=== PATIENT | female | born 1940 | race Caucasian/White ===

== ENCOUNTER → 2017-10-21 | Outpatient (CLI) | payer MEDICARE, OTHER ==
[~2017-10-21] MED LIST: TRAM50 PO
== END | disposition home or self-care (01) ==
LOC: LAB EV 15:13 → LAB SHORT 15:13
DX: N39.0 Urinary tract infection, site not specified (principal)
CPT/HCPCS: 87077; 87086; 87186

== ENCOUNTER → 2018-07-23 | Outpatient (CLI) | payer MEDICARE, OTHER | END | disposition home or self-care (01) | LOC: PLD 08:39 → LAB SHORT 08:39 | DX: D48.5 Neoplasm of uncertain behavior of skin (principal) | CPT/HCPCS: 88305 ==

== ENCOUNTER → 2019-05-27 | Outpatient (CLI) | payer MEDICARE, OTHER ==
[2019-05-29 13:11] LABS: M-SPIKE, % Not Observed % (Not Observed); PROTEIN,TOTAL,URINE 11.8 mg/dL (Not Estab.)
== END | disposition home or self-care (01) ==
LOC: LAB SHORT 07:41 → LAB SRC 07:41 → LAB FUT 05-24 09:35 → EDSTATUS 05-24 09:35
PROVIDERS: Internal Medicine
DX: D89.2 Hypergammaglobulinemia, unspecified (principal)
CPT/HCPCS: 84156; 84166

== ENCOUNTER → 2019-12-07 | Outpatient (CLI) | payer MEDICARE, OTHER ==
[~2019-12-07] MED LIST changes: +ACET325 PO; +ASPI325 PO; +ATOR20 PO; +CLOP75 PO; +GABA300 PO; +LANSOPRAZOLE30 MG PO; +LOSARTAN POTASS25 M2 PO; +METO25 PO; +NEURONTIN300 MG PO; +PANTOPRAZOLE SO40 M2 PO
== END | disposition home or self-care (01) ==
LOC: LAB SHORT 15:18 → PLD 15:18
DX: D48.5 Neoplasm of uncertain behavior of skin (principal)
CPT/HCPCS: 88305

== ENCOUNTER 2019-12-13 09:41 | Inpatient (IN) | payer MEDICARE, OTHER ==
[~2019-12-13] VITALS: Ht 167.6 cm; Wt 56.0 kg
[~2019-12-13 09:41] MED LIST changes: -ACET325 PO; -ASPI325 PO; -ATOR20 PO; -CLOP75 PO; -GABA300 PO; -LANSOPRAZOLE30 MG PO; -LOSARTAN POTASS25 M2 PO; -METO25 PO; -NEURONTIN300 MG PO; -PANTOPRAZOLE SO40 M2 PO
[2019-12-13] MEDS ORDERED: LOSARTAN POTASS25 M2 PO (09:58)
[2019-12-13] MEDS ORDERED: LANSOPRAZOLE30 MG PO (09:58)
[2019-12-13 10:17] LABS: BASOPHILS ABSOLUTE AUTO 0.03 K/mm3 (0.00-0.23); BASOPHILS PERCENT AUTO 0 % (0-2); EOSINOPHILS ABSOLUTE AUTO 0.18 K/mm3 (0.00-0.68); EOSINOPHILS PERCENT AUTO 2 % (0-6); Hematocrit 40.4 % (33.0-51.0); Hemoglobin 12.8 g/dL (11.5-16.0); IMMATURE GRAN ABSOLUTE AUTO 0.04 K/mm3 (0.00-0.10); IMMATURE GRAN PERCENT AUTO 0 % (0-1); LYMPHOCYTES ABSOLUTE AUTO 2.52 K/mm3 (0.84-5.20); LYMPHOCYTES PERCENT AUTO 28 % (21-46); MONOCYTES ABSOLUTE AUTO 0.75 K/mm3 (0.16-1.47); MONOCYTES PERCENT AUTO 8 % (4-13); Mean Corpuscular HGB 29.8 pg (26.0-34.0); Mean Corpuscular HGB Conc 31.7 g/dL (31.5-36.5); Mean Corpuscular Volume 94 fL (80-100); Mean Platelet Volume 10.1 fL (9.1-12.4); NEUTROPHILS ABSOLUTE AUTO 5.37 K/mm3 (1.96-9.15); NEUTROPHILS PERCENT AUTO 61 % (41-73); Platelet Count 260 K/mm3 (150-400); RDW Coefficient Variation 13.8 % (11.7-14.2); White Blood Cell Count 8.89 K/mm3 (4.00-11.30)
[2019-12-13 10:41] LABS: Alanine Aminotransfer (ALT/SGP 21 U/L (12-78); Albumin/Globulin Ratio 0.6 (0.8-1.8); Alk Phos 105 U/L (50-136); Anion Gap 5 mmol/L (6-16); Aspartate Aminotrans (AST/SGOT 99 U/L (12-37); Bilirubin, Total 0.4 mg/dL (0.1-1.0); Blood Urea Nitrogen 11 mg/dL (8-24); Bun/Creatinine Ratio 17.5 (12.0-20.0); CO2, Blood 26 mmol/L (21-32); Calcium, Blood 8.7 mg/dL (8.5-10.1); Chloride, Blood 107 mmol/L (98-108); Creatinine, Blood 0.63 mg/dL (0.40-1.00); Globulin, Blood 5.1 g/dL (2.2-4.0); Glomerular Filtration Rate >60 (60-); Glucose, Blood 120 mg/dL (70-99); Potassium, Blood 4.2 mmol/L (3.5-5.5); Sodium, Blood 138 mmol/L (136-145); Total Protein, Blood 8.1 g/dL (6.4-8.2)
[2019-12-13] MEDS ORDERED: NEURONTIN300 MG PO (11:45)
[2019-12-13] MEDS ORDERED: PANTOPRAZOLE SO40 M2 PO (11:45)
[2019-12-13 11:52] LABS: International Normalized Ratio 0.96; Prothrombin Time Results 10.3 Sec (9.7-11.5)
--- NOTE | 2019-12-13 13:18 | NUR ---
ECHOCARDIOGRAM COMPLETED
--- NOTE | 2019-12-13 13:59 | NUR ---
PT ARRIVES IN ICU AT 1320, SHE IS ALERT AND ORIENTED X 4, ALTHOUGH APPEARS DROWSY. SHE DENIES CP, SOB, AND NAUSEA. AFTER GETTING HER SET UP TO OUR MONITORS I STARTED THE HEPRARIN GTTP. HER BP IS SOFT, BUT THE LAST ONE WAS ADEQUATE AT 107/67. SHE TOOK COZAAR THIS MORNING, SO I WILL BE HOLDING THAT DOSE & WHILE PT IS PAIN FREE WITH THE SOFT PRESSURE I WILL BE HOLDING THE NITROGLYCERIN GTTP. WILL CONTINUE TO MONITOR. PT IS SHAKY SO THE CARDIAC MONITORING TRACING IS NOT VERY CLEAN, BUT SHE APPEARS TO BE IN SINUS RHYTHM WITH A RATE IN THE 70s. NO ST ELEVATIONS ABNORMALITIES SEEN. DAUGHTER AT BEDSIDE. PT FALLING ASLEEP. BED LOW AND LOCKED. ADMIT HISTORY QUESTIONS DELAYED FOR NOW, UNTIL PT MORE AWAKE. CALL LIGHT WITHIN REACH.
--- NOTE | 2019-12-13 14:23 | NUR ---
C/B to provide assurance of care, spiritual direction and prayer for Maria G. She had been recently medicated and was calm. I listened to her concerns/fears. She responded well to gentle certified alcohol and drug counselor and prayer. I will remain available.
--- NOTE | 2019-12-13 14:38 | NUR ---
PT TO ACCOUNTS RECEIVABLE COORDINATOR AT 1425, STABLE VITALS, SINUS RHYTHM, AND DENYING CHEST PAIN.
--- NOTE | 2019-12-13 14:44 | NUR ---
WRONG WEIGHT WHEN PT ARRIVED IN ICU WE WEIGHED THE PT AND IT WAS 56 KG. FROM 1331 TO 1425 PT WAS ON HEPARIN AT 13 UNITS/KG/HR. THE BED WEIGHED HER IN AT 56 KG. IT IS NOW REALIZED THAT THE PT IS NOT 56 KG, SO WHEN PT GETS BACK TO ICU - WE WILL RE-WEIGH THE PT AND UPDATE PHARMACY.
--- NOTE | 2019-12-13 15:39 | NUR ---
ASSUMED CARE: PT TRANSFERRED FROM [facility] AND ICU. REPORT FROM JAMAL AND TRINIDAD RNS. DR TIERNEY CALLED AND SAID CORONARIES CLEAR ON ANGIO AND ORDERED CTA CHEST TO R/O PE. PT'S TR BAND WITH NO SIGNS OF BRUISING OR BLEEDING AT THIS TIME. FAMILY AT BEDSIDE. VSS
--- NOTE | 2019-12-13 16:08 | NUR ---
PT TAKEN TO CT SCAN. DAUGHTER AWARE AND AT BEDSIDE.
--- NOTE | 2019-12-13 18:21 | NUR ---
SHIFT SUMMARY: PT HAD CATH PROCEDURE THIS SHIFT WITH NO INTERVENTIONS NEEDED. D DIMER ELEVATED AND CT NEGATIVE. DR EDMONDS AWARE. PLAN IS FOR HEPARIN RESTART AFTER TR BAND REMOVED. ATTEMPTED TO DEFLATE TR BAND BUT QUARTER SIZED HEMATOMA FORMED SO REINFLATED. PT LETHARGIC BUT ROUSES EASILY. 1 ASSIST TO BSC. NO C/O CHEST PAIN
[2019-12-14 06:02] LABS: BASOPHILS ABSOLUTE AUTO 0.02 K/mm3 (0.00-0.23); BASOPHILS PERCENT AUTO 0 % (0-2); EOSINOPHILS ABSOLUTE AUTO 0.18 K/mm3 (0.00-0.68); EOSINOPHILS PERCENT AUTO 2 % (0-6); Hematocrit 36.2 % (33.0-51.0); Hemoglobin 11.3 g/dL (11.5-16.0); IMMATURE GRAN ABSOLUTE AUTO 0.04 K/mm3 (0.00-0.10); IMMATURE GRAN PERCENT AUTO 1 % (0-1); LYMPHOCYTES ABSOLUTE AUTO 2.52 K/mm3 (0.84-5.20); LYMPHOCYTES PERCENT AUTO 30 % (21-46); MONOCYTES ABSOLUTE AUTO 0.83 K/mm3 (0.16-1.47); MONOCYTES PERCENT AUTO 10 % (4-13); Mean Corpuscular HGB 29.7 pg (26.0-34.0); Mean Corpuscular HGB Conc 31.2 g/dL (31.5-36.5); Mean Corpuscular Volume 95 fL (80-100); Mean Platelet Volume 10.6 fL (9.1-12.4); NEUTROPHILS ABSOLUTE AUTO 4.81 K/mm3 (1.96-9.15); NEUTROPHILS PERCENT AUTO 57 % (41-73); Platelet Count 244 K/mm3 (150-400); RDW Standard Deviation 48.9 fL (35.1-46.3)
[2019-12-14 06:37] LABS: Alanine Aminotransfer (ALT/SGP 20 U/L (12-78); Albumin, Blood 2.7 g/dL (3.4-5.0); Albumin/Globulin Ratio 0.6 (0.8-1.8); Alk Phos 91 U/L (50-136); Anion Gap 4 mmol/L (6-16); Aspartate Aminotrans (AST/SGOT 67 U/L (12-37); Bilirubin, Total 0.4 mg/dL (0.1-1.0); Blood Urea Nitrogen 14 mg/dL (8-24); Bun/Creatinine Ratio 16.1 (12.0-20.0); CHOL/HDL RATIO 4.4; CO2, Blood 28 mmol/L (21-32); Calcium, Blood 8.6 mg/dL (8.5-10.1); Chloride, Blood 107 mmol/L (98-108); Cholesterol 262 mg/dL (50-200); Creatinine, Blood 0.87 mg/dL (0.40-1.00); Globulin, Blood 4.3 g/dL (2.2-4.0); Glomerular Filtration Rate >60 (60-); Glucose, Blood 94 mg/dL (70-99); HDL Cholesterol 59 mg/dL (>39); LDL/HDL RATIO 2.9; Low Density Lipoprotein Chol 171 mg/dL (0-110); Potassium, Blood 4.2 mmol/L (3.5-5.5); Sodium, Blood 139 mmol/L (136-145); Triglycerides 162 mg/dL (30-160); Very Low Density Lipoprot Chol 32 mg/dL (6-32)
[2019-12-14] MEDS ORDERED: ACET325 PO (10:04)
[2019-12-14] MEDS ORDERED: CLOP75 PO (10:04)
[2019-12-14] MEDS ORDERED: METO25 PO (10:05)
[2019-12-14] MEDS ORDERED: GABA300 PO (10:05)
[2019-12-14] MEDS ORDERED: ATOR20 PO (10:11)
[2019-12-14] MEDS ORDERED: ASPI325 PO (10:12)
--- NOTE | 2019-12-14 11:27 | NUR ---
DISCHARGE PT ALERT AND ORIENTED. DR. TIERNEY IN THIS AM WITH OK FOR DISCHARGE. DC INSTRUCTIONS PROVIDED TO PT. PT EDUCATED ON RIGHT RADIAL SITE INSTRUCTIONS. ARM BOARD STILL IN PLACE. PT EDUCATED ON NEW MEDICATIONS AND ALL QUESTIONS ANSWERED. IV REMOVED. PT TAKEN OUT BY WC.
== END 2019-12-14 11:13 | disposition home or self-care (01) | DRG 282 ==
LOC: ER 09:41 → ICUW 09:42 → PCU 09:42 → ER 09:42 → PCU 12:31 → ICUW 12:31 → PCU 12:31 → ER 12:52 → SURS 12:52 → ICUW 13:58 → SURS 13:58 → PCU 15:25 → ICUW 15:25 → PCU 15:25 → ICUW 17:06 → PCU 17:06
PROVIDERS: Emergency Medicine; ADMIT Internal Medicine
PROC: 4A023N7 Measurement of Cardiac Sampling and Pressure, Left Heart, Percutaneous Approach (ICD-10-PCS; principal; 2019-12-13)
PROC: B2111ZZ Fluoroscopy of Multiple Coronary Arteries using Low Osmolar Contrast (ICD-10-PCS; 2019-12-13)
DX: I21.4 Non-ST elevation (NSTEMI) myocardial infarction (principal); I25.10 Atherosclerotic heart disease of native coronary artery without angina pectoris; I08.3 Combined rheumatic disorders of mitral, aortic and tricuspid valves; F41.9 Anxiety disorder, unspecified; E78.5 Hyperlipidemia, unspecified; E11.9 Type 2 diabetes mellitus without complications; E66.9 Obesity, unspecified; I11.9 Hypertensive heart disease without heart failure; I51.7 Cardiomegaly; I27.20 Pulmonary hypertension, unspecified; R93.1 Abnormal findings on diagnostic imaging of heart and coronary circulation; I83.90 Asymptomatic varicose veins of unspecified lower extremity; I87.2 Venous insufficiency (chronic) (peripheral); Z66 Do not resuscitate; Z79.899 Other long term (current) drug therapy; Z88.0 Allergy status to penicillin; Z88.2 Allergy status to sulfonamides; Z88.5 Allergy status to narcotic agent; Z88.8 Allergy status to other drugs, medicaments and biological substances; Z68.35 Body mass index [BMI] 35.0-35.9, adult; Z82.49 Family history of ischemic heart disease and other diseases of the circulatory system
CPT/HCPCS: 36415; 71046; 71260; 76705; 80053; 80061; 82947; 83690; 84484; 85025; 85347; 85379; 85610; 85730; 93005; 93010; 93306; 93454; 96374; 96375; 99152; 99153; 99285-25; A9270-GY; C1769; C1894; C9113; J1200; J1644; J1720; J2060; J2250; J2270; J2405; J3010; J7030; J7050; Q9967

== ENCOUNTER → 2020-07-12 | Outpatient (CLI) | payer MEDICARE, OTHER ==
[~2020-07-12] MED LIST changes: +ACET325 PO; +ASPI325 PO; +ATOR20 PO; +CLOP75 PO; +GABA300 PO; +LANSOPRAZOLE30 MG PO; +LOSARTAN POTASS25 M2 PO; +METO25 PO; +NEURONTIN300 MG PO; +PANTOPRAZOLE SO40 M2 PO
== END | disposition home or self-care (01) ==
LOC: LAB SHORT 15:48
DX: D48.5 Neoplasm of uncertain behavior of skin (principal)
CPT/HCPCS: 88305

== ENCOUNTER → 2024-01-31 | Outpatient (CLI) | payer MEDICARE | LOC: LAB SHORT 12:58 → LAB 12:58 | DX: N39.0 Urinary tract infection, site not specified (principal) | CPT/HCPCS: 87086 ==

== ENCOUNTER 2024-09-11 11:59 | Emergency (ER) | payer MEDICARE ==
[~2024-09-11] VITALS: Ht 165.1 cm; Wt 93.4 kg
[~2024-09-11 11:59] MED LIST changes: -BUPR100ER PO; -CALCIUM CITRAT1 EA20; -DOC250 PO; -KRILL OIL 1,001 EACH PO; -LANS30EC PO; -METO50ER PO; -SUPER B-50 COM1 EACH; -VITAMIN E180 MG PO
[2024-09-11] MEDS ORDERED: Famotidine 10 MG/ML 2ML Vial IV ONE (12:40)
[2024-09-11] MEDS ORDERED: MethylPREDNISolone Sod Succ 125 MG Vial IV ONE (12:40)
[2024-09-11] MEDS ORDERED: DiphenhydrAMINE HCl 50 MG/ML 1ML Vial IV ONE (12:40)
[2024-09-11 14:42] LABS: Albumin/Globulin Ratio 0.6 (0.8-1.8); Bilirubin, Total 0.6 mg/dL (0.1-1.0); Bun/Creatinine Ratio 19.5 (12.0-20.0); Calcium, Blood 8.6 mg/dL (8.5-10.1); Creatinine, Blood 0.87 mg/dL (0.40-1.00); Globulin, Blood 4.9 g/dL (2.2-4.0); Total Protein, Blood 7.9 g/dL (6.4-8.2)
[2024-09-11] MEDS ORDERED: BUPR100ER PO (15:27)
[2024-09-11] MEDS ORDERED: METO50ER PO (15:27)
[2024-09-11] MEDS ORDERED: LANS30EC PO (15:30)
[2024-09-11] MEDS ORDERED: VITAMIN E180 MG PO (15:31)
[2024-09-11] MEDS ORDERED: KRILL OIL 1,001 EACH PO (15:31)
[2024-09-11] MEDS ORDERED: SUPER B-50 COM1 EACH (15:31)
[2024-09-11] MEDS ORDERED: CALCIUM CITRAT1 EA20 (15:32)
[2024-09-11] MEDS ORDERED: DOC250 PO (16:33)
[2024-09-11 16:50] VITALS: BP 114/63
== END 2024-09-11 17:00 | disposition home or self-care (01) ==
LOC: ER 11:59
PROVIDERS: Emergency Medicine
DX: K62.5 Hemorrhage of anus and rectum (principal); I10 Essential (primary) hypertension; E11.9 Type 2 diabetes mellitus without complications; E78.5 Hyperlipidemia, unspecified; Z88.0 Allergy status to penicillin; Z88.2 Allergy status to sulfonamides; Z88.5 Allergy status to narcotic agent; Z88.8 Allergy status to other drugs, medicaments and biological substances; Z79.899 Other long term (current) drug therapy; Z79.82 Long term (current) use of aspirin; Z79.1 Long term (current) use of non-steroidal anti-inflammatories (NSAID)
CPT/HCPCS: 74177; 80053; 85025; 85610; 96374-59; 96375; 99285-25; J1200; J2919; Q9967

== ENCOUNTER → 2024-09-11 | Outpatient (CLI) | payer MEDICARE ==
[~2024-09-11] MED LIST changes: +BUPR100ER PO; +CALCIUM CITRAT1 EA20; +DOC250 PO; +KRILL OIL 1,001 EACH PO; +LANS30EC PO; +METO50ER PO; +SUPER B-50 COM1 EACH; +VITAMIN E180 MG PO
[2024-09-11 10:59] LABS: BASOPHILS ABSOLUTE AUTO 0.02 K/mm3 (0.00-0.23); BASOPHILS PERCENT AUTO 0 % (0-2); EOSINOPHILS PERCENT AUTO 1 % (0-6); Hematocrit 34.3 % (33.0-51.0); Hemoglobin 10.7 g/dL (11.5-16.0); IMMATURE GRAN ABSOLUTE AUTO 0.03 K/mm3 (0.00-0.10); IMMATURE GRAN PERCENT AUTO 0 % (0-1); LYMPHOCYTES ABSOLUTE AUTO 1.36 K/mm3 (0.84-5.20); LYMPHOCYTES PERCENT AUTO 13 % (21-46); MONOCYTES ABSOLUTE AUTO 0.91 K/mm3 (0.16-1.47); MONOCYTES PERCENT AUTO 9 % (4-13); Mean Corpuscular HGB 29.4 pg (26.0-34.0); Mean Corpuscular HGB Conc 31.2 g/dL (31.5-36.5); Mean Corpuscular Volume 94 fL (80-100); Mean Platelet Volume 9.8 fL (9.1-12.4); NEUTROPHILS PERCENT AUTO 76 % (41-73); Platelet Count 233 K/mm3 (150-400); RDW Coefficient Variation 15.2 % (11.7-14.2); RDW Standard Deviation 53.1 fL (35.1-46.3); Red Blood Cell Count 3.64 M/mm3 (3.80-5.20); White Blood Cell Count 10.12 K/mm3 (4.00-11.30)
[2024-09-11 11:58] LABS: International Normalized Ratio 0.99; Prothrombin Time Results 10.9 Sec (9.7-11.5)
== END | disposition home or self-care (01) ==
LOC: LAB 10:52 → LAB SHORT 10:52
PROVIDERS: Physician Assistant
DX: K92.1 Melena (principal)
CPT/HCPCS: 85025; 85610

== ENCOUNTER 2024-10-28 12:07 | Emergency (ER) | payer MEDICARE ==
[~2024-10-28] VITALS: Ht 167.6 cm; Wt 90.7 kg
[~2024-10-28 12:07] MED LIST changes: +BUPR100ER PO; +CALCIUM CITRAT1 EA20; +DOC250 PO; +KRILL OIL 1,001 EACH PO; +LANS30EC PO; +METO50ER PO; +SUPER B-50 COM1 EACH; +VITAMIN E180 MG PO
[2024-10-28 13:29] LABS: BASOPHILS ABSOLUTE AUTO 0.04 K/mm3 (0.00-0.23); BASOPHILS PERCENT AUTO 0 % (0-2); EOSINOPHILS ABSOLUTE AUTO 0.22 K/mm3 (0.00-0.68); EOSINOPHILS PERCENT AUTO 2 % (0-6); Hematocrit 33.4 % (33.0-51.0); Hemoglobin 10.4 g/dL (11.5-16.0); IMMATURE GRAN ABSOLUTE AUTO 0.05 K/mm3 (0.00-0.10); IMMATURE GRAN PERCENT AUTO 0 % (0-1); LYMPHOCYTES ABSOLUTE AUTO 2.07 K/mm3 (0.84-5.20); LYMPHOCYTES PERCENT AUTO 19 % (21-46); MONOCYTES ABSOLUTE AUTO 1.24 K/mm3 (0.16-1.47); MONOCYTES PERCENT AUTO 11 % (4-13); Mean Corpuscular HGB Conc 31.1 g/dL (31.5-36.5); Mean Corpuscular Volume 96 fL (80-100); NEUTROPHILS ABSOLUTE AUTO 7.52 K/mm3 (1.96-9.15); NEUTROPHILS PERCENT AUTO 68 % (41-73); NRBC ABSOLUTE 0.00 K/mm3 (0.00-0.02); NRBC Auto 0.0 /100 WBC (0.0-0.2); Platelet Count 253 K/mm3 (150-400); RDW Coefficient Variation 15.0 % (11.7-14.2); RDW Standard Deviation 51.8 fL (35.1-46.3)
[2024-10-28 14:14] LABS: Alanine Aminotransfer (ALT/SGP 12.0 U/L (12-78); Albumin, Blood 2.9 g/dL (3.4-5.0); Albumin/Globulin Ratio 0.6 (0.8-1.8); Anion Gap 5.0 mmol/L (3-11); Aspartate Aminotrans (AST/SGOT 14.0 U/L (12-37); Bilirubin, Total 0.5 mg/dL (0.1-1.0); Blood Urea Nitrogen 13.0 mg/dL (8-24); CO2, Blood 29.0 mmol/L (21-32); Calcium, Blood 8.8 mg/dL (8.5-10.1); Chloride, Blood 107.0 mmol/L (98-108); Creatinine, Blood 0.8 mg/dL (0.40-1.00); Globulin, Blood 4.7 g/dL (2.2-4.0); Glucose, Blood 125.0 mg/dL (70-99); Potassium, Blood 4.1 mmol/L (3.5-5.5); Sodium, Blood 137.0 mmol/L (136-145); Total Protein, Blood 7.6 g/dL (6.4-8.2)
[2024-10-28] MEDS ORDERED: NS 1,000 ML IV SCH (16:00)
[2024-10-28] MEDS ORDERED: Diazepam 5 MG / ML 2ML SYR IV PRN (16:05)
[2024-10-28] MEDS ORDERED: Furosemide 10 MG / ML 2ML Vial IV ONE (16:05)
[2024-10-28] MEDS ORDERED: Diazepam 5 MG / ML 2ML SYR IV ONE (16:05)
[2024-10-28 17:17] LABS: Source, Urine Clean Catch
[2024-10-28 17:23] LABS: Bilirubin, Urine Neg (Neg); Glucose Qualitative, Urine Neg (Neg); Ketones, Urine Neg (Neg); Leukocyte Esterase, Urine Neg (Neg); Protein, Urine Neg (Neg); Specific Gravity, Urine 1.010 (1.003-1.022); Urobilinogen, Urine NORM (Normal)
[2024-10-28 17:28] LABS: Color, Urine Pale Yellow (P-Yellow)
[2024-10-28 17:30] VITALS: BP 164/74
== END 2024-10-28 18:30 | disposition home or self-care (01) ==
LOC: ER 12:07
PROVIDERS: Student in an Organized Health Care Education/Training Program
DX: K62.5 Hemorrhage of anus and rectum (principal); D50.0 Iron deficiency anemia secondary to blood loss (chronic); K64.8 Other hemorrhoids; K59.09 Other constipation; R60.0 Localized edema; K62.89 Other specified diseases of anus and rectum; I10 Essential (primary) hypertension; E11.9 Type 2 diabetes mellitus without complications; E78.5 Hyperlipidemia, unspecified; I25.10 Atherosclerotic heart disease of native coronary artery without angina pectoris; I25.2 Old myocardial infarction; Z88.0 Allergy status to penicillin; Z88.2 Allergy status to sulfonamides; Z88.5 Allergy status to narcotic agent; Z91.048 Other nonmedicinal substance allergy status; Z79.82 Long term (current) use of aspirin; Z79.899 Other long term (current) drug therapy
CPT/HCPCS: 74177; 80053; 81003; 85025; 96361; 96374; 96375; 99284-25; J1938; J3360; J7030; Q9967